=== PATIENT | female | born 1990 | race African-American/Black ===

== ENCOUNTER 2019-09-25 16:45 | Emergency (ER) | payer OTHER ==
[2019-09-25 17:41] LABS: BASOPHILS % (AUTO) 0.2 %; EOSINOPHILS # (AUTO) 0.1 10^3/uL (0.0-0.7); EOSINOPHILS % (AUTO) 1.4 %; HGB - HEMOGLOBIN 13.2 g/dL (12.0-16.0); LYMPHOCYTES % (AUTO) 11.5 %; MEAN CORPUSCULAR HEMOGLOBIN 29.9 pg (27.0-31.0); MEAN CORPUSCULAR HGB CONC 33.2 g/dL (32.0-36.0); MEAN CORPUSCULAR VOLUME 90.2 fL (81.0-99.0); MEAN PLATELET VOLUME 11.1 fL (7.9-10.8); MONOCYTES # (AUTO) 0.6 10^3/uL (0.0-1.0); MONOCYTES % (AUTO) 7.5 %; NEUTROPHILS # (AUTO) 6.8 10^3/uL (1.5-6.6); PLT - PLATELET COUNT 214 10^3/uL (130-450); RED BLOOD COUNT 4.41 10^6/uL (4.20-5.40); RED CELL DISTRIBUTION WIDTH 13.2 % (12.0-15.0); WHITE BLOOD COUNT 8.5 x10^3/uL (4.8-10.8)
--- NOTE | 2019-09-25 17:49 | XRAY Report ---
Reason: Chest pain Procedure Date: 09/25/2019 Accession Number: [id number] / [id number] Procedure: XR - Chest 1 View X-Ray CPT Code: 97147 Final Report FULL RESULT: EXAM: CHEST RADIOGRAPHY EXAM DATE: 09/25/2019 05:12 PM. CLINICAL HISTORY: Chest pain. COMPARISON: None. TECHNIQUE: 1 view. FINDINGS: Lungs/Pleura: No focal opacities evident. No pleural effusion. No pneumothorax. Mediastinum: Heart size is normal. Trachea is midline. Other: None. IMPRESSION: Negative for an acute cardiopulmonary abnormality. RADIA
[2019-09-25 18:12] LABS: ALBUMIN 4.4 g/dL (3.2-5.5); ALBUMIN/GLOBULIN RATIO 1.3 (1.0-2.2); CALCIUM 8.9 mg/dL (8.5-10.3); CREATININE 0.7 mg/dL (0.4-1.0); TOTAL PROTEIN 7.8 g/dL (6.7-8.2)
[2019-09-25] MEDS ORDERED: ONDANSETRON 4 MG/2 ML VIAL IVP STA (19:02)
[2019-09-25] MEDS ORDERED: MORPHINE 2 MG/ML CARPUJECT IVP STA ×2 (19:02→21:26)
[2019-09-25] MEDS ORDERED: LACTATED RINGERS 1,000 ML IV ONE ×2 (19:02→22:16)
--- NOTE | 2019-09-25 19:04 | ED Physician Documentation ---
History of Present Illness - Stated complaint Stated Complaint: CHEST PAIN/LOSS OF APPETITE - Chief complaint Chief Complaint: Cardiac - Additonal information Additional information: This is a 28-year-old female who presents with epigastric pain, nausea, vomiting, dark urine, and yellowing of her eyes. Patient has a history of gallstones, she states that she had similar discomfort to this in the past and was found to have biliary colic, but she has not had a cholecystectomy because she was told she was very young and they wanted to wait to do the surgery. She has left upper quadrant pain radiating to her back which is moderate to severe, and does not seem to be worse with movement. She also has noticed that her urine became dark over the last 2 days and she also has had some yellowing of her eyes. She has not had a fever. She has had difficulty defecating, but she had a small bowel movement today. She states that when she takes deep breath and she has discomfort in epigastrium, but no actual anterior chest pain. Review of Systems Constitutional: denies: Fever Nose: denies: Rhinorrhea / runny nose Cardiac: denies: Chest pain / pressure GI: reports: Abdominal Pain, Nausea, Vomiting : denies: Dysuria Skin: reports: Other (Slight jaundice). denies: Rash Musculoskeletal: denies: Extremity pain Immunocompromised: denies: Immunocompromised PD PAST MEDICAL HISTORY - Past Medical History Past Medical History: No Cardiovascular: None Respiratory: None Neuro: None Endocrine/Autoimmune: None GI: None MAINTENANCE MECHANIC HELPER: None : None HEENT: None Psych: None Musculoskeletal: None Derm: None - Past Surgical History Past Surgical History: No - Present Medications Home Medications: Ambulatory Orders Medication Instructions Recorded Confirmed No Known Home Medications 09/26/19 09/26/19 - Allergies Allergies/Adverse Reactions: Allergies Allergy/AdvReac Type Severity Reaction Status Date / Time No Known Drug Allergies Allergy Verified 09/25/19 16:57 - Social History Does the pt smoke?: Yes Smoking Status: Current every day smoker Does the pt drink ETOH?: No Does the pt have substance abuse?: No - Immunizations Immunizations are current?: Yes - POLST Patient has POLST: No PD ED PE NORMAL - Vitals Vital signs reviewed: Yes - General General: Alert and oriented X 3, No acute distress - HEENT HEENT: Other (Sclera are slightly icteric bilaterally.) - Neck Neck: Supple, no meningeal sign - Cardiac Cardiac: RRR, No murmur - Respiratory Respiratory: No respiratory distress, Clear bilaterally - Abdomen Abdomen: Normal bowel sounds, Soft, Other (Rotund, mild tenderness to palpation in the right upper quadrant, epigastrium and the left upper quadrant. There is no guarding. No lower abdominal tenderness) - Derm Derm: Warm and dry - Extremities Extremities: No deformity - Neuro Neuro: Alert and oriented X 3 - Psych Psych: Normal mood, Normal affect Results - Vitals Vitals: Vital Signs - 24 hr 09/25/19 09/25/19 09/25/19 16:57 19:15 19:41 Temperature 37.2 C 37.2 C Heart Rate 70 62 59 L Respiratory 18 16 16 Rate Blood Pressure 166/90 H 128/82 H 141/84 H O2 Saturation 99 100 97 09/25/19 09/25/19 09/26/19 21:37 22:15 00:27 Temperature 36.9 C 36.8 C Heart Rate 59 L 50 L 51 L Respiratory 13 13 16 Rate Blood Pressure 129/60 127/80 146/74 H O2 Saturation 100 98 95 09/26/19 01:56 Temperature 36.3 C L Heart Rate 53 L Respiratory 16 Rate Blood Pressure 116/93 H O2 Saturation 98 Oxygen O2 Source Room air - EKG (time done) 17:04 Other comments: Other comments (Time 17: 04, rate 70, there is no ST segment elevation or depression, no abnormal T wave inversions, there is T wave flattening in the inferior leads.) - Labs Labs: Laboratory Tests 09/25/19 09/25/19 09/25/19 17:35 17:35 17:35 WBC 8.5 RBC 4.41 Hgb 13.2 Hct 39.8 MCV 90.2 MCH 29.9 MCHC 33.2 RDW 13.2 Plt Count 214 MPV 11.1 H Neut # (Auto) 6.8 H Lymph # (Auto) 1.0 L Moody # (Auto) 0.6 Eos # (Auto) 0.1 Baso # (Auto) 0.0 Absolute Nucleated RBC 0.00 Nucleated RBC % 0.0 Sodium 136 Potassium 2.9 L Chloride 99 L Carbon Dioxide 27 Anion Gap 10.0 BUN 9 Creatinine 0.7 Estimated GFR (MDRD) 123 Glucose 84 Calcium 8.9 Total Bilirubin 7.0 H Direct Bilirubin AST 156 H ALT 389 H Alkaline Phosphatase 128 H Troponin I High Sens < 2.3 L Total Protein 7.8 Albumin 4.4 Globulin 3.4 Albumin/Globulin Ratio 1.3 Lipase 1408 H Serum HCG, Qual 09/25/19 09/25/19 17:35 17:35 WBC RBC Hgb Hct MCV MCH MCHC RDW Plt Count MPV Neut # (Auto) Lymph # (Auto) Moody # (Auto) Eos # (Auto) Baso # (Auto) Absolute Nucleated RBC Nucleated RBC % Sodium Potassium Chloride Carbon Dioxide Anion Gap BUN Creatinine Estimated GFR (MDRD) Glucose Calcium Total Bilirubin Direct Bilirubin 4.4 H AST ALT Alkaline Phosphatase Troponin I High Sens Total Protein Albumin Globulin Albumin/Globulin Ratio Lipase Serum HCG, Qual NEGATIVE PD MEDICAL DECISION MAKING - ED course Complexity details: considered differential (Gastritis, cholecystitis, pancreatitis, hepatitis, choledocholithiasis, peptic ulcer disease, abdominal mass, UTI, pyelonephritis, electrolyte abnormality) ED course: On arrival patient is mildly uncomfortable appearing but nontoxic. IV was inserted, labs were drawn, and she was placed on the monitor. Her labs are notable for an elevated bilirubin of 7.0 with a direct bilirubin of 4.4, AST and ALT elevations, as well as an elevated lipase at 1408. She has no history of Tylenol use, rarely drinks alcohol, and has not had any recently, and does not have any risk factors for infectious hepatitis. Obstruction such as due to choledocolithiasis appears most likely. Her potassium is also somewhat low at 2.9, she was started on lactated Ringer's and given a total of 2.5 L of LR during her stay here. She has no fever, no leukocytosis, no signs of cholangitis or infection at this time. HCG negative. A CT scan of her abdomen was obtained which showed a dilated common bile duct of 9.9 mm, as well as a mildly dilated pancreatic duct. There are no signs of cholecystitis. Clinically she appears to have choledocholithiasis causing pancreatitis and elevated bilirubin. She was given several doses of morphine with excellent pain control. I discussed the case with Dr. Das of gastroenterology at [facility] in [place], who agrees with transfer and asks that the patient be admitted to the medicine service and they will plan for ERCP. I spoke with Dr. Ford of the medicine service, who accepted the patient in transfer. Given that pt's vital signs are stable she does not require any medications en route, we will send her BLS. Patient is in agreement with this plan and continues to be hemodynamically stable and well-appearing with no mental status changes, fever, or other concerning vital sign abnormalities at the time of transfer. Departure - Departure Disposition: 02 Transfer Acute Care Hosp Clinical Impression: Choledocholithiasis Pancreatitis Qualifiers: Chronicity: acute Pancreatitis type: biliary Acute pancreatitis complication: unspecified Qualified Code(s): K85.10 - Biliary acute pancreatitis without necrosis or infection Condition: Good Discharge Date/Time: 09/26/19 02:01
[2019-09-25] MEDS ORDERED: IOVERSOL 320 100 ML VIAL IVP ONE ×2 (19:09→20:25)
[2019-09-25 19:41] LABS: HCG,QUALITATIVE BLOOD NEGATIVE
--- NOTE | 2019-09-25 21:09 | CT Report ---
Reason: Elevated bilirubin, LFT elevations, epigastric hipolito Procedure Date: 09/25/2019 Accession Number: [id number] / [id number] Procedure: CT - Abdomen/Pelvis W CPT Code: Final Report FULL RESULT: EXAM: CT ABDOMEN AND PELVIS EXAM DATE: 09/25/2019 08:24 PM. CLINICAL HISTORY: Elevated bilirubin, LFT elevations, epigastric pain. COMPARISONS: None. TECHNIQUE: Routine helical CT imaging was performed through the abdomen and pelvis. IV contrast: 100 cc of Optiray 320. Enteric contrast: No. Reconstructions: Coronal and sagittal. In accordance with CT protocol optimization, one or more of the following dose reduction techniques were utilized for this exam: automated exposure control, adjustment of mA and/or KV based on patient size, or use of iterative reconstructive technique. FINDINGS: Lung Bases: Lung bases are clear. No pleural or pericardial effusions. No cardiac enlargement. Small hiatal hernia noted. Liver: Portal vein is patent. No solid liver mass. Moderate intrahepatic bile duct dilation. Gallbladder/Bile Ducts: Gallstones are noted. No definite pericholecystic fluid. Mild dilated common bile duct. No definite common bile duct stone or mass identified. Spleen: Normal. Pancreas: No mass, calcification or atrophy. Mild pancreatic ductal prominence. No peripancreatic collections. Adrenal Glands: Normal. Kidneys: Normal. No masses or hydronephrosis. Peritoneal Cavity/Bowel: Normal. No free fluid, free air or adenopathy. No masses or acute inflammatory process. There are multiple diverticula seen which most severely affect the sigmoid colon. No wall thickening or adjacent inflammation seen. No obstruction noted. The appendix is well visualized and normal. Remaining stomach, small bowel and large bowel are normal.Small fat-containing umbilical hernia. No inguinal hernia. Pelvic Organs: IUD is noted in the uterus. Otherwise, the bladder and visualized pelvic organs are within normal limits. No collections, ascites or adenopathy. Vasculature: No aneurysms or other significant abnormality. Bones: No significant abnormality. Other: None. IMPRESSION: 1. Gallstones. No definite CT findings concerning for acute cholecystitis. 2. Moderate intrahepatic and mild common bile duct dilation. No obvious obstructing stone or mass. Given the abnormal LFTs, consider MRCP. 3. No obvious pancreatic mass. Mildly prominent pancreatic duct is noted. No calcifications or peripancreatic collections. 4. Diverticulosis. Normal appendix. RADIA
[2019-09-26] MEDS ORDERED: LACTATED RINGERS 500 ML IV STA (00:30)
[2019-09-26] MEDS ORDERED: MORPHINE 2 MG/ML CARPUJECT IVP STA (01:48)
[2019-09-26 01:59] VITALS: BP 116/93
== END 2019-09-26 02:01 | disposition short-term general hospital (02) ==
LOC: ED 16:45
DX: K80.50 Calculus of bile duct without cholangitis or cholecystitis without obstruction (principal); K85.10 Biliary acute pancreatitis without necrosis or infection; F17.210 Nicotine dependence, cigarettes, uncomplicated
CPT/HCPCS: 36415; 71045; 74177; 80053; 82248; 83690; 84484; 84703; 85025; 93005; 96361; 96374; 96376; 99284; 99285; J7120; Q9967

== ENCOUNTER 2019-09-26 02:02 | Outpatient (CLI) | payer OTHER | END 2019-09-26 02:03 | disposition short-term general hospital (02) | LOC: EMS 02:02 | PROVIDERS: ATTEND Surgery | DX: K85.90 Acute pancreatitis without necrosis or infection, unspecified (principal); K80.50 Calculus of bile duct without cholangitis or cholecystitis without obstruction | CPT/HCPCS: A0425; A0428 ==

== ENCOUNTER 2020-03-12 13:55 | Outpatient (CLI) | payer OTHER ==
--- NOTE | 2020-03-12 14:39 | SLEEP CARE CONSULTATION ---
Information from patient questionnaire entered by Alyson Pulido. I have reviewed and concur with the information entered by Alyson Pulido. This document represents the service I personally performed and the decisions made by me, Adriana Ken ARNP. History of Present Illness Service Date and Time: 03/12/2020 1355 Reason for Visit: New patient Chief Complaint: reports: Insomnia (sometimes can't get to sleep), Unrefreshed sleep, Snoring, Frequent awakenings at night, Other (problems with memory). denies: Excessive daytime sleepiness, Observed pauses in breathing, Fatigue Date of Onset: 5 years Usual bedtime: [id number] Time it takes to fall asleep: 5-120 minutes Snores at night: Yes Observed to quit breathing while asleep: No Sleeps alone due to snoring: No Number of times waking at night: 2-5 Reasons for waking at night: reports: Bathroom, Other (worries about getting up for work). denies: Choking, Snoring, Gasping for air, Pain Toss, Turn, or Twitch while sleeping: Yes Recalls having dreams: No Usually gets out of bed at: 0230 when working; on weekends 9-10 AM Feels refreshed in the morning: No Morning headache: Yes (sometimes; 1-2 times a week, lasting 2 hours without medications) Sleepy or fatigued during the day: Yes Ever fallen asleep while driving: No Takes day naps: Yes (2-3 weekly, 2 hours) Dreams during day naps: No Prior sleep studies: No Additional HPI information: I had the pleasure of seeing GRACE BRYSON today regarding the possibility of her having a sleep disorder. Her current complaints are unrefreshed sleep and snoring. She has trouble falling asleep, she is awakening frequently during the night and has trouble remembering things. She states she will fall asleep on the couch and find herself awakening in her bed and not remember going to bed. She states her parents both have sleep apnea and use CPAP machine therapy. - Parasomnia Symptoms Ever been unable to move upon waking from sleep: No Walks in sleep: No Talks in sleep: Yes Ever acted out dreams in sleep: Yes Ever felt weak in the knees when startled or emotional: No Bothered by creepy, crawly, restless sensations in legs: No Problems with memory or concentration: Yes (problems with remembering things, forgets how she gets to places sometimes) Subjective Initial [place] Sleepiness Scale score: 6 Past Medical History Past Medical History: reports: Other (gallbladder surgery (removed) September 2019). denies: Hypertension, Claustrophobia, Congestive Heart Failure, Diabetes, Stroke, Coronary Heart Disease, Arrythmia, Hypothyroidism, Anemia, Anxiety, Depression, Mood disorder, GERD, Attention deficit Social History The patient's occupation is a [employer]. Patient is Single and lives in [place]. Have you smoked in the past 12 months: Yes Years of smokin Alcohol use: Yes Alcohol amount and frequency: very little; 1 time a month Caffeine use: Yes Caffeine amount and frequency: 1 cup/day Family History Family history of sleep disordered breathing: Yes Family Hx Sleep Apnea: Mother: Snoring, Sleep apnea - Treated, Father: Snoring, Sleep apnea - Treated Allergies and Home Medications Drug allergies reviewed: Yes (NKDA) Home medication list reviewed: Yes (vitamins) Review of Systems Weight gain over past 5 years: 20 Weight loss over past 5 years: 20 Cardiovascular: denies: high blood pressure, palpitations, chest pain, irregular heart rate or pulse, leg or foot swelling Respiratory: denies: shortness of breath, chronic cough Gastrointestinal: denies: heartburn, difficulty swallowing Urinary: denies: incontinence Neurological: denies: headaches, seizure, head trauma, speech dysfunction, gait or balance problems, fainting or unconsciousness Psychiatric: denies: Attention Deficit Hyperactivity, anxiety, depression, mood disorder, claustrophobia Ear/Nose/Throat: reports: nose bleeds (when it is hot, it is random; 2 times a month), dry mouth/throat (mornings upon awakening and during the night; drinking water helps), wisdom teeth removed. denies: nasal congestion, sinus problems, hoarseness, injury to nose, tonsillectomy Endocrine: reports: sluggishness. denies: thyroid disease Musculoskeletal: reports: back pain. denies: muscle pain or cramping, mobility problems Immunologic: reports: allergies to food or environment (cut grass or pollen possibly) Physical Exam Blood Pressure: 128/78 Cuff size: long Heart Rate: 63 O2 Saturation: 98 Height: 5 ft 5 in Weight: 324 lb 12.8 oz Body Mass Index: 54.0 BMI Classification: Morbidly Obese HEENT: No craniofacial malformation Nostrils: patent to airflow Turbinates: swollen Septum: midline Mouth and throat: normal Soft palate: normal Hard palate: arched Uvula: normal Uvula visualization: 100% Mallampati Class I Tongue: enlarged in size with teeth magallon on lateral edges Tonsils: 1+ Chin and jaw: normal size and position Neck: normal w/o lymphadenopathy or thyromegaly Heart: irregular rhythm Lungs: clear bilaterally Impression and Plan 1. Suspected Obstructive Sleep Apnea-Hypopnea Syndrome, as suggested by a history of loud and irregular snoring, morning headache, frequent awakening during the night, unrefreshed sleep, cognitive impairment, and excessive daytime sleepiness. Narrow oropharynx and obesity are common predisposing factors for obstructive sleep apnea-hypopnea syndrome. I recommend proceeding to polysomnography to confirm the diagnosis and to assess severity. If the patient has significant sleep disordered breathing, a manual CPAP titration study will also be performed to find the optimal treatment pressure. I informed the patient of what the sleep studies involve and after some discussion, obtained agreement to proceed. The pathophysiology of obstructive sleep apnea-hypopnea syndrome was discussed with the patient and health risks of cardiovascular and cerebrovascular disease if not treated. AASM brochure for obstructive sleep apnea-hypopnea syndrome given and reviewed. Risks of drowsy driving discussed in detail and patient advised to avoid long distance driving and to laborer [employer] at the first sign of drowsiness. Patient agreed to plan. * Schedule polysomnography +- manual CPAP titration study. * Avoid long distance driving or driving when feeling sleepy. * Avoid alcohol, sedative and muscle relaxant around bedtime. * Attempt to lose weight. * Review instructions provided by trained office staff on how to prepare for the sleep study. * Return for follow-up after sleep study completed. Visit Type: In Office Time Spent with Patient (minutes): 25 Provider Statement: I spent 100% of the Face to Face Visit with the patient with greater than 50% spent counseling the patient and coordination of care.
[2020-03-12 14:51] VITALS: BP 128/78
== END 2020-03-12 13:56 | disposition home or self-care (01) ==
LOC: SC 13:55
PROVIDERS: ATTEND Nurse Practitioner Family
DX: R06.83 Snoring (principal); G47.8 Other sleep disorders; G47.10 Hypersomnia, unspecified; R53.83 Other fatigue; E66.01 Morbid (severe) obesity due to excess calories; Z68.43 Body mass index [BMI] 50.0-59.9, adult
CPT/HCPCS: 99204; 99212

== ENCOUNTER → 2020-04-19 | Outpatient (CLI) | payer OTHER | LOC: SC 19:30 | PROVIDERS: ATTEND Nurse Practitioner Family | DX: G47.10 Hypersomnia, unspecified (principal); R53.83 Other fatigue; G47.8 Other sleep disorders; R06.83 Snoring; E66.01 Morbid (severe) obesity due to excess calories; Z68.43 Body mass index [BMI] 50.0-59.9, adult | CPT/HCPCS: 95806 ==

== ENCOUNTER 2020-06-03 12:05 | Outpatient (CLI) | payer OTHER ==
--- NOTE | 2020-06-03 12:07 | SLEEP CARE CONSULTATION ---
Information from patient questionnaire entered by Annia Lombardi. I have reviewed and concur with the information entered by Annia Lombardi. This document represents the service I personally performed and the decisions made by , Adriana Ken ARNP. History of Present Illness Service Date and Time: 06/03/2020 1140 Initial [place] Sleepiness Scale score: 6 (in 2020) Current [place] Sleepiness Scale score: 4 Additional HPI information: GRACE BRYSON returns for follow up and results of the recently performed home sleep study. The patient was informed of the following findings: no significant sleep disordered breathing or hypoxemia. I explained the pathophysiology behind obstructive sleep apnea. Patient does not have sleep apnea and was advised how weight gain could increase the risk of developing sleep apnea in the future. I strongly encouraged the patient to lose weight. Patient has light snoring. Snoring can be reduced by weight loss. Weight loss is best achieved with diet consult. Patient instructed to contact PCP for referral. Snoring can also be treated with an oral appliance from a dentist. Advised to check insurance coverage. In addition, an ENT evaluation can be do to see if other treatment is indicated. Patient counseled not drink alcohol less than 4 hours before bedtime as it can increase snoring and apnea. Patient was cautioned about risks of drowsy driving until sleepiness symptoms resolve. Sleep Study - Results Type of Sleep Study: Home sleep study Polysomnography/Home Sleep Study results: Based on 4% Calculation: The AHI4% calculation of 2.9 per hour of recording time was based on a total of 13 scored apneas and 15 scored hypopneas with 4% desaturations. Supine AHI4%: 3.3 per hour. Non-supine AHI4%: 1.9 per hour. Oxygen Summary: Patient's baseline O2 saturation was 97.8 %. The patient spent 1.2 minutes at an oxygen saturation less than 90%, and 0.0 minutes less than 85%. The desaturation index was 2.3 events per hour sleep time. The lowest saturation was 83.8 %. SNORING: The percent of the study time spent snoring was 0.0 %. The Snoring Count was 1 . The Snoring Index was 0.1 . PULSE RATE REVIEW: The mean heart rate was 59 beats per minute. The rate ranged from a low of 38 to a high of 84 beats per minute. Allergies and Home Medications Drug allergies reviewed: Yes (NKDA) Home medication list reviewed: Yes (no changes) Review of Systems Review of systems same as previous: Yes (no changes) Physical Exam Vital signs obtained and entered by: Telehealth visit to reduce exposure during Covid pandemic Height: 5 ft 5 in Impression and Plan 1. Snoring but no significant sleep disordered breathing. Patient advised that often weight loss will reduce snoring as well as apnea risk. An oral appliance can also be used for snoring. This would require a dental consultation. Patient cautioned not to use other online appliances as can cause bite issues. A list of accredited dentists in area and one local dentist who makes oral appliances given. Patient is advised to check if insurance will cover. An ENT consult can also be helpful to determine if any other treatment is an option. * Attempt to lose weight * Avoid alcohol consumption near bedtime * The patient is cautioned about driving until sleepiness is completely resolved. * Return as needed. Counseling Topics: Weight loss health impact Visit Type: Telehealth Video Video Type: Doximity Patient Location: Home Location of Provider: Office Patient agrees and consents to this telehealth visit type: Yes Patient agrees to have their insurance billed: Yes Time Spent with Patient (minutes): 18 Provider Statement: I spent 100% of the Telehealth Video Call with the patient with greater than 50% spent counseling the patient and coordination of care.
== END 2020-06-03 12:06 | disposition home or self-care (01) ==
LOC: SC 12:05
PROVIDERS: ATTEND Nurse Practitioner Family
DX: R06.83 Snoring (principal)

== ENCOUNTER 2021-05-06 15:03 | Outpatient (CLI) | payer OTHER ==
--- NOTE | 2021-05-06 16:15 | Ultrasound Report ---
PROCEDURE: OB First Trimester w/TV INDICATIONS: POSITIVE TEST OUTSIDE/PRIOR DATING DATA: Last menstrual period (LMP): February 16, 2021. LMP-based estimated date of delivery ([place] NENA): December 12, 2021. First dating scan (date and location): Pending sale to [facility]; May 06, 2021. Estimated date of delivery ([place] NENA) from first dating scan: December 12, 2021. The below data below was generated using the ultrasound [place] NENA of December 12, 2021 TECHNIQUE: Real-time scanning was performed of the fetus and maternal pelvic organs, with image documentation. Endovaginal scanning was also performed to better visualize the fetus and maternal ovaries. COMPARISON: None. FINDINGS: The cervical length measures 4.4 cm and is closed. Embryo: The crown-rump length measures 2.02 cm, compatible with an 8 week, four-day gestation. Heart rate: 169 bpm. Measurement variability in dating: +/- 4 weeks by LMP, +/- 7 days by mean sac diameter (use before 6 weeks gestation if crown-rump length not able to be measured), +/- 5 days by crown-rump length (6-12 weeks gestation). Ovaries: A 2.8 x 2.3 x 2.4 cm lesion is seen within the right ovary, likely reflecting a corpus luteu m. The left ovary is unremarkable. IMPRESSION: Live single intrauterine gestation as detailed above. Reviewed by: Dav Contreras MD on 05/06/2021 4:14 PM PDT Approved by: Dav Contreras MD on 05/06/2021 4:14 PM PDT Station ID: [id number]
== END 2021-05-06 15:04 | disposition home or self-care (01) ==
LOC: DI 15:03
PROVIDERS: ATTEND Obstetrics & Gynecology
DX: Z32.01 Encounter for pregnancy test, result positive (principal)

== ENCOUNTER 2021-05-25 08:00 | Outpatient (CLI) | payer OTHER ==
[2021-05-25 22:33] LABS: CHLAMYDIA TRACHOMATIS DNA NEGATIVE (NEGATIVE); NEISSERIA GONORRHOEAE DNA NEGATIVE (NEGATIVE); TRICHOMONAS VAGINALIS DNA NEGATIVE (NEGATIVE)
== END 2021-05-25 23:59 | disposition home or self-care (01) ==
LOC: LAB.WC 08:00
PROVIDERS: ATTEND Obstetrics & Gynecology
DX: Z11.3 Encounter for screening for infections with a predominantly sexual mode of transmission (principal)
CPT/HCPCS: 87491; 87591; 87661

== ENCOUNTER 2021-06-04 13:16 | Outpatient (CLI) | payer OTHER ==
[2021-06-04 13:54] LABS: BASOPHILS % (AUTO) 0.4 %; EOSINOPHILS # (AUTO) 0.1 10^3/uL (0.0-0.7); EOSINOPHILS % (AUTO) 1.7 %; HCT - HEMATOCRIT 33.3 % (37.0-47.0); LYMPHOCYTES # (AUTO) 1.7 10^3/uL (1.5-3.5); LYMPHOCYTES % (AUTO) 21.3 %; MEAN CORPUSCULAR HEMOGLOBIN 29.2 pg (27.0-31.0); MEAN CORPUSCULAR VOLUME 88.3 fL (81.0-99.0); MEAN PLATELET VOLUME 10.4 fL (7.9-10.8); MONOCYTES # (AUTO) 0.5 10^3/uL (0.0-1.0); MONOCYTES % (AUTO) 5.9 %; NEUTROPHILS # (AUTO) 5.7 10^3/uL (1.5-6.6); NEUTROPHILS % (AUTO) 70.3 %; PLT - PLATELET COUNT 236 10^3/uL (130-450); RED BLOOD COUNT 3.77 10^6/uL (4.20-5.40); RED CELL DISTRIBUTION WIDTH 13.4 % (12.0-15.0); WHITE BLOOD COUNT 8.1 x10^3/uL (4.8-10.8)
[2021-06-05 11:01] LABS: HEPATITIS B SURFACE ANTIGEN NON-REACTIVE (NON-REACTIVE)
[2021-06-05 11:06] LABS: HEPATITIS C ANTIBODY NON-REACTIVE (NON-REACTIVE)
[2021-06-05 15:00] LABS: HIV AG/AB 4TH GEN NON-REACTIVE (NON-REACTIVE)
== END 2021-06-04 13:17 | disposition home or self-care (01) ==
LOC: LAB 13:16
PROVIDERS: ATTEND Obstetrics & Gynecology
DX: Z34.90 Encounter for supervision of normal pregnancy, unspecified, unspecified trimester (principal); Z36.89 Encounter for other specified antenatal screening
CPT/HCPCS: 36415; 85025; 86592; 86762; 86787; 86803; 86850; 86900; 86901; 87340; 87389

== ENCOUNTER 2021-06-19 15:50 | Outpatient (CLI) | payer OTHER ==
[2021-06-19 16:09] LABS: BILIRUBIN,URINE NEGATIVE (NEGATIVE); GLUCOSE, URINE (UA) NEGATIVE (NEGATIVE); KETONES,URINE (UA) NEGATIVE (NEGATIVE); LEUKOCYTE ESTERASE, URINE SMALL (NEGATIVE); NITRITE,URINE NEGATIVE (NEGATIVE); OCCULT BLOOD,URINE NEGATIVE (NEGATIVE); PROTEIN,URINE NEGATIVE (NEGATIVE); UROBILINOGEN,URINE 0.2 (NORMAL) E.U./dL (NORMAL)
[2021-06-19 16:16] LABS: CLARITY,URINE CLOUDY (CLEAR)
[2021-06-19 16:18] LABS: RBC,URINE 0-5 /HPF (0-5); SQUAMOUS EPITHELIAL CELL,UR MOD Squamous (<= Few)
[2021-06-19 16:19] LABS: BACTERIA,URINE Many /HPF (None Seen)
== END 2021-06-19 15:51 | disposition home or self-care (01) ==
LOC: LAB.R 15:50
PROVIDERS: ATTEND Obstetrics & Gynecology
DX: Z34.90 Encounter for supervision of normal pregnancy, unspecified, unspecified trimester (principal); Z36.89 Encounter for other specified antenatal screening
CPT/HCPCS: 81001; 87086

== ENCOUNTER 2021-06-30 08:57 | Outpatient (CLI) | payer OTHER ==
[2021-06-30 12:02] LABS: % IRON SATURATION 13 % (20-50); GLUCOSE,1H PP 50GM DOSE 111; IRON 54 ug/dL (28-170); TOTAL IRON BINDING CAPACITY 407 ug/dL (250-450); TRANSFERRIN 291 mg/dL (192-382)
== END 2021-06-30 08:58 | disposition home or self-care (01) ==
LOC: LAB.N 08:57
PROVIDERS: ATTEND Obstetrics & Gynecology
DX: O99.019 Anemia complicating pregnancy, unspecified trimester (principal); D64.9 Anemia, unspecified
CPT/HCPCS: 36415; 81599; 82728; 82950; 83540; 84466

== ENCOUNTER 2021-07-30 13:47 | Outpatient (CLI) | payer BC, OTHER ==
--- NOTE | 2021-07-30 16:24 | Ultrasound Report ---
PROCEDURE: OB Detailed Eval INDICATIONS: SUPERVISION OF OUTSIDE/PRIOR DATING DATA: Last menstrual period (LMP): 03/10/2021. LMP-based estimated date of delivery ([facility]): 12/15/2021. First dating scan (date and location): 05/06/2021. Estimated date of delivery ([facility]) from first dating scan: 12/12/2021. The below data below was generated using the ultrasound [facility] of 12/12/2021 TECHNIQUE: Real-time scanning was performed of the fetus, with image documentation and biometric measurements. Endovaginal scanning: Performed COMPARISON: 05/06/2021. FINDINGS: General: A single living intrauterine gestation is present. Presentation: There is normal Placenta: Placental position is anterior, without previa. Amniotic fluid index: 14.1 cm, normal 5-24 cm. Largest amniotic fluid pocket 5.5 cm. heart rate: 150 beats per minute. Maternal cervical canal: Closed. Length not measured. biometrics: Biparietal diameter: 20 weeks 1 day Head circumference: 20 weeks 2 days Abdominal circumference: 21 weeks 0 days Femur length: 20 weeks 3 days Estimated gestational age from initial scan: 20 weeks 5 days. Composite gestational age from present scan: 20 weeks 2 days Estimated weight and percentile: 371 g; 43rd percentile Measurement variability in biometric dating: +/- 10 days from 12-20 weeks gestation, +/- 2 weeks from 20-30 weeks gestation, +/- 3 weeks at 30 weeks gestation or later. Anatomic survey: Neuro: Ventricles are normal at less than 10 mm. Cisterna magna is normal at 3-11 mm. Cerebellum i s normal in size and morphology. Nuchal skin fold: Normal at less than 6 mm between 14 and 20 weeks gestational age. Face: Nose and lips are normal. profile not well seen. Spine: No evidence for spina bifida. Heart: 4-chambered heart is present, with normal left ventricular outflow tract. Right ventricular o utflow tract not well seen Diaphragm: Diaphragm is intact. Stomach: Left-sided stomach is present. Kidneys: No hydronephrosis. Normal is less than 5 mm in 2nd trimester, less than 7 mm in 3rd trimester. Cord: 3 vessel cord has orthotopic insertion. Bladder: Normal in size. Extremities: All 4 extremities are visualized. IMPRESSION: 1. Single living intrauterine with appropriate interval growth. 2. Normal amniotic fluid index. 3. facial profile and cardiac right ventricular outflow tract not well seen and cannot be evalu ated. anatomic survey otherwise normal. Reviewed by: Thelma Gamino MD, PhD on 07/30/2021 4:23 PM PST Approved by: Thelma Gamino MD, PhD on 07/30/2021 4:23 PM PST Station ID: [id number]
== END 2021-07-30 13:48 | disposition home or self-care (01) ==
LOC: DI 13:47
PROVIDERS: ATTEND Obstetrics & Gynecology
DX: Z34.00 Encounter for supervision of normal first pregnancy, unspecified trimester (principal); Z36.89 Encounter for other specified antenatal screening

== ENCOUNTER 2021-07-31 16:15 | Outpatient (CLI) | payer OTHER ==
[2021-07-31 16:42] LABS: BILIRUBIN,URINE NEGATIVE (NEGATIVE); GLUCOSE, URINE (UA) NEGATIVE (NEGATIVE); KETONES,URINE (UA) NEGATIVE (NEGATIVE); LEUKOCYTE ESTERASE, URINE NEGATIVE (NEGATIVE); NITRITE,URINE NEGATIVE (NEGATIVE); OCCULT BLOOD,URINE NEGATIVE (NEGATIVE); PH,URINE 7.5 PH (5.0-7.5); PROTEIN,URINE NEGATIVE (NEGATIVE); UROBILINOGEN,URINE 1 (NORMAL) E.U./dL (NORMAL)
[2021-07-31 17:12] LABS: CLARITY,URINE CLEAR (CLEAR)
[2021-07-31 17:56] LABS: RBC,URINE 0-5 /HPF (0-5); WBC,URINE 0-3 /HPF (0-5)
[2021-07-31 17:57] LABS: BACTERIA,URINE Few /HPF (None Seen); SQUAMOUS EPITHELIAL CELL,UR MANY Squamous (<= Few)
== END 2021-07-31 16:16 | disposition home or self-care (01) ==
LOC: LAB 16:15
PROVIDERS: ATTEND Obstetrics & Gynecology
DX: Z34.90 Encounter for supervision of normal pregnancy, unspecified, unspecified trimester (principal)
CPT/HCPCS: 81001; 87086

== ENCOUNTER 2021-08-21 08:52 | Outpatient (CLI) | payer BC ==
--- NOTE | 2021-08-21 11:56 | Ultrasound Report ---
PROCEDURE: OB F/U or Repeat INDICATIONS: SUPERVISION HIGH RISK , reevaluate RVOT, facial profile, and EFW OUTSIDE/PRIOR DATING DATA: Last menstrual period (LMP): 03/10/2021. LMP-based estimated date of delivery ([facility]): 12/15/2021. First dating scan (date and location): 05/06/2021. Estimated date of delivery ([facility]) from first dating scan: 12/12/2021. The below data below was generated using the ultrasound [facility] of 12/12/2021 TECHNIQUE: Real-time scanning was performed of the fetus, with image documentation and biometric measurements. Endovaginal scanning: Not performed COMPARISON: 07/30/2021, 05/06/2021 FINDINGS: Suboptimal study secondary to patient body habitus. General: A single living intrauterine gestation is present. Presentation: Variable, breech Placenta: Placental position is anterior, without previa. Amniotic fluid index: 16.7 cm, largest pocket is 5.3 cm heart rate: 141 beats per minute. Maternal cervical canal: Closed and 4.3 cm long; normal length is 2.5 cm or more. biometrics: Biparietal diameter: 5.4 cm, 22 weeks, 3 days Head circumference: 20.7 cm, 22 weeks, 5 days Abdominal circumference: 20.4 cm, 25 weeks, 0 days Femur length: 4.6 cm, 25 weeks, 3 days Estimated gestational age from initial scan: 23 weeks, 6 days Composite gestational age from present scan: 23 weeks, 6 days Estimated weight and percentile: 735 g, 83rd percentile Measurement variability in biometric dating: +/- 10 days from 12-20 weeks gestation, +/- 2 weeks from 20-30 weeks gestation, +/- 3 weeks at 30 weeks gestation or more. Other: The facial profile and cardiac right ventricular outflow tracts are seen and appear norm al. IMPRESSION: 1. Single living intrauterine with a composite gestational age by today's measurements in g ood agreement with the initially assigned gestational age. 2. Estimated weight at the 83rd percentile based on ultrasound [facility] of 12/12/2021. 3. Completion of the normal anatomic survey with visualization of right ventricular outflow tra ct and facial profile. Reviewed by: Karma Gann MD on 08/21/2021 11:54 AM PST Approved by: Karma Gann MD on 08/21/2021 11:54 AM PST Station ID: [id number]
== END 2021-08-21 08:53 | disposition home or self-care (01) ==
LOC: DI 08:52
PROVIDERS: ATTEND Obstetrics & Gynecology
DX: O09.72 Supervision of high risk pregnancy due to social problems, second trimester (principal); Z3A.23 23 weeks gestation of pregnancy

== ENCOUNTER 2021-09-28 14:47 | Outpatient (CLI) | payer BC ==
--- NOTE | 2021-09-28 16:23 | Ultrasound Report ---
PROCEDURE: OB F/U or Repeat INDICATIONS: EXCESSIVE WEIGHT GAIN IN OUTSIDE/PRIOR DATING DATA: Last menstrual period (LMP): 03/10/2021. LMP-based estimated date of delivery ([facility]): 12/15/2021. First dating scan (date and location): 05/06/2021. Estimated date of delivery ([facility]) from first dating scan: 12/12/2021. The below data below was generated using the ultrasound [facility] of 12/12/2021 TECHNIQUE: Real-time scanning was performed of the fetus, with image documentation and biometric measurements. Endovaginal scanning: Not performed. COMPARISON: OB ultrasound 08/21/2021 FINDINGS: General: A single living intrauterine gestation is present. Presentation: Cephalic Placenta: Placental position is anterior, without previa. Amniotic fluid index: 9.3 cm, normal for gestational age. Single deepest vertical pocket: 3.2 cm. heart rate: 141 beats per minute. Maternal cervical canal: 4.2 cm long; normal length is 2.5 cm or more. biometrics: Biparietal diameter: 7.41 cm, 29 weeks 5 days Head circumference: 26.8 cm, 29 weeks 1 day Abdominal circumference: 24.6 cm, 28 weeks 6 days Femur length: 5.63 cm, 29 weeks 4 days Estimated gestational age from initial scan: 29 weeks 2 days Composite gestational age from present scan: 29 weeks 2 days Estimated weight and percentile: 1350 g, 33rd percentile Measurement variability in biometric dating: +/- 10 days from 12-20 weeks gestation, +/- 2 weeks from 20-30 weeks gestation, +/- 3 weeks at 30 weeks gestation or more. Other: Not applicable. IMPRESSION: Single live intrauterine with appropriate interval growth. Estimated esperanza ght is 1350 g, 33rd percentile for gestational age. Amniotic fluid index is 9.3 cm. Reviewed by: Woodrow Foreman MD on 09/28/2021 4:22 PM PDT Approved by: Woodrow Foreman MD on 09/28/2021 4:22 PM PDT Station ID: [id number]
== END 2021-09-28 14:48 | disposition home or self-care (01) ==
LOC: DI 14:47
PROVIDERS: ATTEND Obstetrics & Gynecology
DX: O26.03 Excessive weight gain in pregnancy, third trimester (principal); Z3A.29 29 weeks gestation of pregnancy

== ENCOUNTER 2021-09-30 09:45 | Outpatient (CLI) | payer BC ==
[2021-09-30 12:37] LABS: HCT - HEMATOCRIT 33.4 % (37.0-47.0); HGB - HEMOGLOBIN 10.9 g/dL (12.0-16.0); MEAN CORPUSCULAR HEMOGLOBIN 27.9 pg (27.0-31.0); MEAN CORPUSCULAR HGB CONC 32.6 g/dL (32.0-36.0); MEAN CORPUSCULAR VOLUME 85.6 fL (81.0-99.0); MEAN PLATELET VOLUME 11.2 fL (7.9-10.8); RED BLOOD COUNT 3.9 10^6/uL (4.20-5.40); RED CELL DISTRIBUTION WIDTH 15.1 % (12.0-15.0); WHITE BLOOD COUNT 8.5 x10^3/uL (4.8-10.8)
== END 2021-09-30 09:46 | disposition home or self-care (01) ==
LOC: LAB.N 09:45
PROVIDERS: ATTEND Obstetrics & Gynecology
DX: O09.72 Supervision of high risk pregnancy due to social problems, second trimester (principal)
CPT/HCPCS: 36415; 82950; 85027

== ENCOUNTER 2021-10-08 08:00 | Outpatient (CLI) | payer BC | END 2021-10-08 23:59 | disposition home or self-care (01) | LOC: LAB.R 08:00 | PROVIDERS: ATTEND Obstetrics & Gynecology | DX: O09.72 Supervision of high risk pregnancy due to social problems, second trimester (principal) | CPT/HCPCS: 87086 ==